=== PATIENT | male | born 1970 | race Caucasian/White ===

== ENCOUNTER 2021-09-23 09:00 | Outpatient (CLI) | payer OTHER | END 2021-09-23 09:15 | disposition home or self-care (01) | LOC: PPH VACUNA 09:00 | PROVIDERS: ATTEND Emergency Medicine Pediatric Emergency Medicine | DX: Z23 Encounter for immunization (principal) ==

== ENCOUNTER 2022-06-16 08:00 | Outpatient (CLI) | payer OTHER | END 2022-06-16 08:05 | disposition home or self-care (01) | LOC: PPH VACUNA 08:00 | PROVIDERS: ATTEND Emergency Medicine Pediatric Emergency Medicine | DX: Z23 Encounter for immunization (principal) ==

== ENCOUNTER → 2022-12-10 | Emergency (ER) | payer OTHER ==
[~2022-12-10] VITALS: Ht 165.1 cm; Wt 59.0 kg
[~2022-12-10] MED LIST: ECOTRIN325 M1 PO; KAPVAY0.1 MG PO; LIPOFEN150 MG PO; NIFEDIPINE20 MG PO; ZESTRIL2.5 MG PO
== END | disposition home or self-care (01) ==
LOC: ER 09:13
DX: M77.8 Other enthesopathies, not elsewhere classified (principal); I10 Essential (primary) hypertension